=== PATIENT | male | born 1975 | race Two or more races ===

== ENCOUNTER 2019-09-20 03:13 | Emergency (ER) | payer SELFPAY ==
[~2019-09-20] VITALS: Ht 175.3 cm; Wt 95.3 kg
[2019-09-20 03:19] VITALS: BP 168/100
[2019-09-20] MEDS ORDERED: AZITHROMYCIN 250 MG TABLET ONE (03:50)
[2019-09-20] MEDS ORDERED: CEFTRIAXONE 250 MG ONE (03:50)
[2019-09-20] MEDS ORDERED: CEFTRIAXONE 250 MG IM ONE (04:00)
[2019-09-20] MEDS ORDERED: AZITHROMYCIN 500 MG TABLET PO ONE (04:00)
[2019-09-20 04:41] LABS: CULTURE INDICATED? YES; MICROSCOPIC INDICATED
== END 2019-09-20 04:31 | disposition home or self-care (01) ==
LOC: ED 04:10
DX: N34.2 Other urethritis (principal); A56.01 Chlamydial cystitis and urethritis; A54.01 Gonococcal cystitis and urethritis, unspecified; F17.210 Nicotine dependence, cigarettes, uncomplicated; F10.10 Alcohol abuse, uncomplicated; Y90.0 Blood alcohol level of less than 20 mg/100 ml
CPT/HCPCS: 81001; 87077; 87086; 87491; 87591; 96372; 99283; J0696